=== PATIENT | male | born 1980 | race American Indian/Alaskan Native ===

== ENCOUNTER 2021-06-06 08:19 | Day surgery (SDC) | payer MEDICARE ==
[~2021-06-06 08:19] MED LIST: HEPARIN 10,000 UNITS/10 ML VIAL IV ONE; MIDAZOLAM 2 MG/2 ML INJ IV NR; SODIUM CHLORIDE 0.9% 1000 ML 1,000 ML IV SCH; SODIUM CHLORIDE 0.9% 250 ML IVPB IV ONE; SODIUM CHLORIDE 0.9% 500 ML IVPB IRRIGATION ONE; SODIUM CHLORIDE 0.9% IRR 1,500 ML BOTTLE IR ONE; ceFAZolin/Water 2 GM/20 ML 2 GM/20 ML SYRINGE IV NR; fentaNYL 100 MCG/2 ML INJ IV PRN; rifAMPin 600 MG VIAL IV ONE
--- NOTE | 2021-06-06 09:17 | Anesthesia Consultation ---
Anesthesia Consult and Med Hx Date of service: 06/06/21 - Airway Anesthetic Teeth Evaluation: Good ROM Head & Neck: Adequate Mental/Hyoid Distance: Adequate Mallampati Class: Class I Intubation Access Assessment: Good - Pre-Operative Health Status ASA Pre-Surgery Classification: ASA3 Proposed Anesthetic Plan: MAC Nerve Block: supraclavicular - Pulmonary Hx Smoking: Yes (quit 25yrs ago) Hx Respiratory Symptoms: No - Cardiovascular System Hx Hypertension: Yes Hx Heart Attack/AMI: No - Central Nervous System CVA: No - Endocrine Hx End Stage Renal Disease: Yes (last HD 06/05/21) Hx Liver Disease: No Hx Insulin Dependent Diabetes: No Hx Non-Insulin Dependent Diabetes: No Hx Thyroid Disease: No - Additional Comments Anesthesia Medical History Comments: No hx anesthetic complications.
--- NOTE | 2021-06-06 09:17 | Anesthesia Day of Surgery ---
Anesthesia Day of Surgery - Day of Surgery Patient Examined: Yes Patient H&P Reviewed: Yes Patient is NPO: Yes
[2021-06-06 09:58] LABS: Hematocrit 40.5 % (35.5-45.6); Hemoglobin 12.8 gm/dl (11.8-15.2); Mean Corpuscular HGB Conc 32 % (32-34); Mean Corpuscular Volume 100 fl (84-94); Platelet Count 145 K/mm3 (140-440); Red Blood Count 4.06 M/mm3 (3.65-5.03)
[2021-06-06 10:20] LABS: Calcium 5.9 mg/dL (8.4-10.2)
[2021-06-06] MEDS ORDERED: BUPIVACAINE/PF (0.25%) 2.5 MG/ML 30 ML VIAL INFILTRATI ONE (10:21)
[2021-06-06] MEDS ORDERED: BUPIVACAINE/PF (0.5%) 5 MG/1 ML 30 ML VIAL INFILTRATI ONE ×2 (10:54→12:14)
[2021-06-06] MEDS ORDERED: LIDOCAINE (1%) 10 MG/1 ML VIAL 20 ML MDV ONE (10:54)
[2021-06-06] MEDS ORDERED: HEPARIN 10,000 UNITS/10 ML VIAL ONE (10:54)
[2021-06-06] MEDS ORDERED: SODIUM CHLORIDE 0.9% 250ML 250 ML ONE (10:55)
[2021-06-06] MEDS ORDERED: rifAMPin 600 MG VIAL ONE (10:55)
[2021-06-06] MEDS ORDERED: SODIUM CHLORIDE 0.9% 500 ML 500 ML ONE (10:55)
[2021-06-06] MEDS ORDERED: LIDOCAINE MPF (2%) 20 MG/1 ML VIAL 5 ML ONE (10:58)
[2021-06-06] MEDS ORDERED: fentaNYL 100 MCG/2 ML INJ ONE (10:59)
[2021-06-06] MEDS ORDERED: propofoL 200 MG/20 ML VIAL IV ONE ×3 (10:59→12:52)
[2021-06-06] MEDS ORDERED: SODIUM CHLORIDE 0.9% 500 ML IVPB IRRIGATION ONE (12:02)
[2021-06-06] MEDS ORDERED: SODIUM CHLORIDE 0.9% 250 ML IVPB IV ONE (12:02)
[2021-06-06] MEDS ORDERED: rifAMPin 600 MG VIAL IV ONE (12:02)
[2021-06-06] MEDS ORDERED: SODIUM CHLORIDE 0.9% IRR 1,500 ML BOTTLE IR ONE (12:02)
[2021-06-06] MEDS ORDERED: HEPARIN 10,000 UNITS/10 ML VIAL IV ONE (12:02)
[2021-06-06] MEDS ORDERED: KETAMINE/STERILE WATER 50 MG/ML SYRINGE ONE (12:17)
--- NOTE | 2021-06-06 13:23 | Short Stay Summary ---
Short Stay Documentation Date of service: 06/06/21 Narrative H&P: See H&P - History H&P: obtained from office - Allergies and Medications Current Medications: Allergies morphine Allergy (Verified 06/05/21 08:53) Shortness of Breath ANXIETY, PARALYSIS diphenhydramine [From Benadryl] Adverse Reaction (Verified 06/05/21 08:53) Unknown RESTLESS LEG SYNDROME Home Medications Medication Instructions Recorded Confirmed Last Taken Type Bictegrav/Emtricit/Tenofov Ala 1 tab PO HS 06/05/21 06/05/21 Unknown History [Biktarvy 30-120-15 mg Tablet] Calcium Acetate [Phoslo] 667 mg PO TID 06/05/21 06/05/21 Unknown History Labetalol HCl [Labetalol 300mg TAB] 300 mg PO BID 06/05/21 06/05/21 Unknown History calcitrioL [Rocaltrol] 0.5 mcg PO BID 06/05/21 06/05/21 Unknown History Active Medications Fentanyl (Fentanyl 100 Mcg/2 Ml Inj) 100 mcg IV ONCE PRN PRN Reason: sedation for nerve block Cefazolin Sodium (Ancef/Sterile Water 2 Gm/20 Ml) 2 gm in 20 mls @ 80 mls/hr IV PREOP NR; Protocol Stop: 06/06/21 20:00 Sodium Chloride (Nacl 0.9% 1000 Ml) 1,000 mls @ 42 mls/hr IV DIRECT JOSE ENRIQUE Stop: 06/06/21 23:59 Midazolam HCl (Midazolam 2 Mg/2 Ml Inj) 2 mg IV PREOP NR Stop: 06/06/21 23:59 - Brief post op/procedure progress note Date of procedure: 06/06/21 Pre-op diagnosis: Complications of Dialysis Access Post-op diagnosis: same Procedure: Creation of Left Brachial Artery to Left Axillary Vein Arteriovenous Graft with 7 mm Bovine Artegraft Anesthesia: MAC, regional Surgeon: SHANNON MCRAE Estimated blood loss: minimal Pathology: none Condition: stable - Disposition Condition at discharge: Good Disposition: 01 HOME / SELF CARE / HOMELESS Short Stay Discharge Plan Activity: other (No heavy lifting with left arm for 2 weeks.) Wound: open to air, keep clean and dry, other (Okay to shower and wash the incision with soap and water but do not soak in water for 2 weeks.) Follow up with: SHANNON MCRAE MD [Staff Physician] - 14 Days Prescriptions: HYDROcodone/APAP 7.5-325 [[place] 7.5/325] 1 each PO Q6HR PRN #30 tablet PRN Reason: Pain
--- NOTE | 2021-06-06 13:30 | Operative Report ---
Operative Report Operative Report: Date of procedure:06/06/2021 Pre-operative diagnosis: Complications of Dialysis Access Post-operative diagnosis: Same Procedure(s): 1. Creation of Left Brachial Artery to Axillary Vein AV Graft with 7 mm Bovine Graft Artergraft Surgeon: Naseem Fish MD Aviation Support Equipment Repairer: None Anesthesia: Regional/MAC EBL: Minimal Counts: Correct Complications: None Condition: Stable Findings: Successful Creation of Left Arm AV Graft with Palpable Thrill and Palpable Radial Pulse at the Completion of the Case. Specimen: None Indication: The patient is a 41-year-old male with a history of end-stage renal disease who is currently on a left thigh arteriovenous fistula. He had a diagnostic fistulogram with a diagnostic arteriogram that revealed angiographic evidence of steal syndrome. Given the appearance of the fistula it did not appear amenable to revision and in addition to this he had not ever had an access in his left upper extremity. I discussed this with the patient and felt that it was best to create a graft in his left upper extremity as he does not have adequate vein for creation of a fistula. The patient agreed with the assessment and plan. He was given the risk, benefits, and alternative procedures and consented to the procedure. Description of Procedure: Prior to being transported to the operating room the patient had a regional block of the left arm performed. After the block was performed the patient was transported to the operating room and adequately sedated. The patient's left arm was then prepped and draped in normal sterile fashion. A longitudinal incision was made on the medial aspect of the arm just proximal to the antecubital crease and carried down to the brachial artery using sharp dissection. The brachial artery was dissected out circumferentially both proximally and distally and controlled with vessel loops. A second incision was created in longitudinal fashion on the medial aspect of the arm just distal to the axillary crease and carried down to the axillary vein using sharp dissection. Axillary vein was dissected out circumferentially and controlled with a vessel loop. I then used a Mariela-Wick tunneler to tunnel from the brachial artery incision to the axillary vein incision and then pulled an 7 mm bovine through the tunnel. I infused with heparinized saline to ensure that it was not twisted or kinked. I put the brachial artery vessel loops on tension controlling the flow and then created an arteriotomy using an 11 blade and Jerome scissors. I beveled the graft and created an end-to-side anastomosis using 6-0 Prolene running fashion. I clamped the graft just proximal to the anastomosis and then released the vessel loops restoring flow in the brachial artery. I placed quick clot in incision to achieve hemostasis. I cut the proximal end of the graft to the appropriate length and beveled the graft in preparation for a venous anastomosis. I controlled the axillary vein a Satinsky clamp and created a venotomy using an 11 blade and Jerome scissors. I created an end to side anastomosis using a 6-0 Prolene in running fashion. Prior to completing the anastomosis I flushed the graft to ensure there was no thrombus and then completed the anastamosis. I released all clamps allowing flow into the AV graft which had an excellent thrill. I packed the wound with quick clot to achieve hemostasis. I closed both wounds in 2 layers using 3-0 Vicryl in running fashion in the deep dermal layer and 4-0 Monocryl in running fashion the subcuticular layer. I dressed both wounds with Dermabond. The patient tolerated the procedure well all sponge, needle, and instrument counts were correct. The patient was taken to recovery in stable condition.
[2021-06-06] MEDS ORDERED: OXYMETAZOLINE 0.05% NASAL SPRAY NS ONE (14:23)
[2021-06-06] MEDS ORDERED: HYDROcodone/ACETAMINOPHEN 5-325 MG TAB PO ONE (15:01)
[2021-06-06] MEDS ORDERED: AYR SALINE NASAL GEL 14.1 GM NS PRN (15:24)
[2021-06-06] MEDS ORDERED: LIDOCAINE (4%) 40 MG/ML TOPICAL SOLN 50 ML BOTTLE TP ONE (16:20)
--- NOTE | 2021-06-06 17:49 | Cat Scan Report ---
CT MAXILLOFACIAL WITHOUT CONTRAST INDICATION / CLINICAL INFORMATION: right nasal pain. Status post nasal trumpet placement and removal. TECHNIQUE: All CT scans at this location are performed using CT dose reduction for ALARA by means of automated e xposure control. COMPARISON: None available. FINDINGS: FACIAL BONES: No fracture or other significant abnormality. ASSISTANT PRODUCE MANAGER SPACES:Evaluation of the industrial engineering technologist space structures reveal no abnormalities. SALIVARY GLANDS: Parotid and submandibular salivary glands have an unremarkable appearance. PARANASAL SINUSES: Mild mucosal thickening is seen within several ethmoid air cells. No other indicat ion of inflammatory changes seen within the paranasal sinuses. NASAL CAVITY: Soft tissue of material opacifies portion of the right nasal cavity between the inferio r and middle turbinates. Given the history of recent nasal trumpet placement this could represent a s mall hematoma. There is no indication of fracture. Mild rightward deviation of the nasal septum is no geoffrey. ORBITS: Globes, optic nerves and extraocular muscles have an unremarkable appearance. TEMPORAL BONES:Visualized mastoid air cells and the middle ear cavities are normally pneumatized. No abnormalities are seen on evaluation of the middle ear cavities. VISUALIZED INTRACRANIAL STRUCTURES: A region of CSF attenuation is seen along the medial aspect of th e right temporal lobe. This could represent an arachnoid cyst in the right choroidal fissure. An epid ermoid could produce a similar appearance. Magnetic resonance imaging of the brain would be useful to further characterize this finding. No other intracranial abnormalities are identified. ADDITIONAL FINDINGS: None. IMPRESSION: 1. Soft tissue attenuation in the right nasal cavity could represent hematoma. 2. No indication of facial fracture or other osseous abnormality. 3. CSF attenuation along the medial aspect of the right temporal lobe could reflect presence of an ar achnoid cyst in the choroidal fissure. An epidermoid could produce a similar appearance. Further eval uation with magnetic resonance imaging of the brain would be useful to further characterize this find ing. Signer Name: Christiano Saxena MD Signed: 06/06/2021 5:45 PM Workstation Name: [id number]
--- NOTE | 2021-06-06 18:01 | Event Note ---
Date: 06/06/21 While in PACU, patient complained of severe pain in the right nostril. Of note, patient was noted to have airway obstruction while under sedation so nasal trumpet was placed. Per MANPOWER DEVELOPMENT MANAGER, first attempted to place lubricated nasal trumpet in right nostril but this did not pass easily so it was placed in the left nostril without difficulty. It was removed at the end of the surgery without difficulty. Patient has no pain in the left nostril, or in the region of of the facial sinuses on either side. There is no obvious trauma to the nose. There is no bleeding or significant nasal drainage. Initially, there was complaint of congestion for which Afrin was given however pain was not relieved. Additional interventions at that time included saline nasal gel/spray, humidified O2, warm and cold compress. None of these provided relief. Cotton swabs soaked in 4% lidocaine inserted gently into right nostril and left for 10 mins with no relief. PO and IV pain medications were minimally effective. Performed limited exam with Glidescope fiberoptic scope and noted congestion on the right side, no significant erythema, no obvious nasal trauma to either nostril. Given concern for significant pain without clear cause on external exam, CT face ordered for further evaluation. Patient's family updated.
[2021-06-06] MEDS ORDERED: HYDROcodone/ACETAMINOPHEN 5-325 MG TAB PO PRN (19:32)
--- NOTE | 2021-06-06 19:42 | Post Anesthesia Evaluation ---
- Post Anesthesia Evaluation Patient Participated: Yes Airway Patent: Yes Stable Respiratory Function: Yes Nausea/Vomiting: No Temp > 96.8F: Yes Pain Manageable: Yes Adequeate Hydration: Yes Anesthesia Complications: Yes (see event note)
[2021-06-06 20:52] VITALS: BP 138/82
--- NOTE | 2021-06-07 17:55 | Event Note ---
Date: 06/07/21 Attempted to contact patient regarding complaint of nasal pain and follow up with [facility] that was scheduled for today at 1pm. Tried phone number listed for patient in EMR x3 as well as number listed for patient's spouse x1. No answer at either number. Voicemail was full for patient's number. Will attempt to follow up again tomorrow.
--- NOTE | 2021-06-08 17:59 | Event Note ---
Date: 06/08/21 Again attempted to contact patient at the phone number listed in EMR and at spouse's listed number regarding complaint of nasal pain on 06/06/10. Tried both numbers multiple times throughout the day. There was no answer at either number.
== END 2021-06-06 20:00 | disposition home or self-care (01) ==
LOC: OR 08:19
PROVIDERS: ATTEND Surgery Vascular Surgery
DX: T82.898A Other specified complication of vascular prosthetic devices, implants and grafts, initial encounter (principal); I12.0 Hypertensive chronic kidney disease with stage 5 chronic kidney disease or end stage renal disease; N18.6 End stage renal disease; Z86.718 Personal history of other venous thrombosis and embolism; Z94.0 Kidney transplant status; Z98.890 Other specified postprocedural states; Z79.899 Other long term (current) drug therapy; Z88.5 Allergy status to narcotic agent; Z88.8 Allergy status to other drugs, medicaments and biological substances; Z87.891 Personal history of nicotine dependence; Y82.8 Other medical devices associated with adverse incidents; Y92.89 Other specified places as the place of occurrence of the external cause
CPT/HCPCS: 36415; 36830; 64415; 70486; 80048; 85027; C1768; J0690; J1644; J2250; J2704; J3010; J3490; J7030; J7040; J7050; 64450; J7120; Q0162

== ENCOUNTER 2021-07-25 08:34 | Day surgery (SDC) | payer MEDICARE ==
[~2021-07-25 08:34] MED LIST changes: -HEPARIN 10,000 UNITS/10 ML VIAL IV ONE; -MIDAZOLAM 2 MG/2 ML INJ IV NR; -SODIUM CHLORIDE 0.9% 1000 ML 1,000 ML IV SCH; -SODIUM CHLORIDE 0.9% 250 ML IVPB IV ONE; -SODIUM CHLORIDE 0.9% 500 ML IVPB IRRIGATION ONE; -SODIUM CHLORIDE 0.9% IRR 1,500 ML BOTTLE IR ONE; +ceFAZolin/STERILE WATER 2 GM/20 ML SYRINGE IV NR; -ceFAZolin/Water 2 GM/20 ML 2 GM/20 ML SYRINGE IV NR; -fentaNYL 100 MCG/2 ML INJ IV PRN; -rifAMPin 600 MG VIAL IV ONE
[2021-07-25] MEDS ORDERED: SODIUM CHLORIDE 0.9% 1000 ML 1,000 ML ONE (08:52)
[2021-07-25] MEDS ORDERED: SODIUM CHLORIDE 0.9% 1000 ML 1,000 ML IV SCH (09:00)
[2021-07-25] MEDS ORDERED: oxyCODONE /ACETAMINOPHEN 5-325MG TAB PO PRN (09:30)
[2021-07-25] MEDS ORDERED: fentaNYL 100 MCG/2 ML INJ IV PRN (09:30)
[2021-07-25] MEDS ORDERED: LIDOCAINE (1%) 10 MG/1 ML VIAL 20 ML MDV ONE (09:32)
[2021-07-25] MEDS ORDERED: HEPARIN 10,000 UNITS/10 ML VIAL ONE (09:32)
[2021-07-25] MEDS ORDERED: BUPIVACAINE/PF (0.5%) 5 MG/1 ML 30 ML VIAL INFILTRATI ONE ×2 (09:32→11:18)
[2021-07-25] MEDS ORDERED: SODIUM CHLORIDE 0.9% 500 ML 500 ML ONE (09:33)
[2021-07-25] MEDS ORDERED: SODIUM CHLORIDE 0.9% 250ML 0 ML ONE (09:33)
[2021-07-25] MEDS ORDERED: SODIUM CHLORIDE 0.9% 250ML 250 ML ONE (09:33)
[2021-07-25] MEDS ORDERED: rifAMPin 600 MG VIAL ONE (09:33)
[2021-07-25 09:52] LABS: Hematocrit 41.5 % (35.5-45.6); Hemoglobin 13.8 gm/dl (11.8-15.2); Mean Corpuscular HGB Conc 33 % (32-34); Mean Corpuscular Volume 98 fl (84-94); Red Blood Count 4.26 M/mm3 (3.65-5.03); Red Cell Distribution Width 15.7 % (13.2-15.2)
--- NOTE | 2021-07-25 09:53 | Anesthesia Day of Surgery ---
Anesthesia Day of Surgery - Day of Surgery Patient Examined: Yes Patient H&P Reviewed: Yes Patient is NPO: Yes
--- NOTE | 2021-07-25 09:53 | Anesthesia Consultation ---
Anesthesia Consult and Med Hx Date of service: 07/25/21 - Airway Anesthetic Teeth Evaluation: Good ROM Head & Neck: Adequate Mental/Hyoid Distance: Adequate Mallampati Class: Class I Intubation Access Assessment: Good - Pre-Operative Health Status ASA Pre-Surgery Classification: ASA3 Proposed Anesthetic Plan: General - Pulmonary Hx Smoking: Yes (quit 25yrs ago) Hx Respiratory Symptoms: No - Cardiovascular System Hx Hypertension: Yes Hx Heart Attack/AMI: No - Central Nervous System CVA: No - Endocrine Hx End Stage Renal Disease: Yes (last HD 07/24/21) Hx Liver Disease: No Hx Insulin Dependent Diabetes: No Hx Non-Insulin Dependent Diabetes: No Hx Thyroid Disease: No - Additional Comments Anesthesia Medical History Comments: Had cut in left nare after nasal trumpet placement during previous anesthetic. Otherwise, no anesthetic complications.
[2021-07-25 09:55] LABS: Platelet Count 80 K/mm3 (140-440)
[2021-07-25] MEDS ORDERED: MIDAZOLAM 2 MG/2 ML INJ IV NR (10:00)
--- NOTE | 2021-07-25 10:30 | Short Stay Summary ---
Short Stay Documentation Date of service: 07/25/21 Narrative H&P: The patient is a 41-year-old male with a history of end-stage renal disease. He is currently on hemodialysis through a left arm arteriovenous graft that was created approximately 1 month ago. He has a left thigh fistula that is causing steal syndrome resulting in pain and numbness of his left leg. He is in need of ligation of the left thigh fistula to resolve his symptoms. He was given the risk, benefits, and alternative procedures and consented to the procedure. - History Past Medical History: dialysis, ESRD, HIV/AIDS, hypertension Past Surgical History: Other (creation of right arm arteriovenous access, creation of left thigh AVF, creation of left arm AVG) Social history: no significant social history - Allergies and Medications Current Medications: Allergies morphine Allergy (Verified 07/17/21 11:27) Shortness of Breath ANXIETY, PARALYSIS diphenhydramine [From Benadryl] Adverse Reaction (Verified 07/17/21 11:) Unknown RESTLESS LEG SYNDROME Home Medications Medication Instructions Recorded Confirmed Last Taken Type Bictegrav/Emtricit/Tenofov Ala 1 tab PO HS 06/05/21 07/25/21 07/24/21 21:00 History [Biktarvy 30-120-15 mg Tablet] Calcium Acetate [Phoslo] 667 mg PO TIDWM 06/05/21 07/25/21 07/24/21 17:00 History Labetalol HCl [Labetalol 300mg TAB] 300 mg PO BID 06/05/21 07/25/21 07/24/21 20:00 History calcitrioL [Rocaltrol] 0.5 mcg PO BID 06/05/21 07/25/21 07/24/21 17:00 History Gabapentin [Neurontin] 100 mg PO QHS 07/17/21 07/25/21 07/24/21 20:00 History Active Medications Cefazolin Sodium (Cefazolin/Sterile Water 2 Gm/20 Ml Syringe) 2 gm IV PREOP NR Stop: 07/25/21 20:00 Fentanyl (Fentanyl 100 Mcg/2 Ml Inj) 50 mcg IV Q5MIN PRN PRN Reason: Pain , Severe (7-10) Stop: 07/25/21 18:00 Sodium Chloride (Nacl 0.9% 1000 Ml) 1,000 mls @ 42 mls/hr IV DIRECT JOSE ENRIQUE Stop: 07/25/21 21:00 Last Admin: 07/25/21 09:30 Dose: 42 mls/hr Midazolam HCl (Midazolam 2 Mg/2 Ml Inj) 2 mg IV PREOP NR Stop: 07/25/21 23:59 Oxycodone/Acetaminophen (Oxycodone /Acetaminophen 5-325mg Tab) 1 tab PO ONCE PRN PRN Reason: Pain, Moderate (4-6) Stop: 07/25/21 18:00 - Physical exam General appearance: no acute distress Lungs: Normal air movement Breasts: deferred Heart: Regular rate Gastrointestinal: normal Male Genitourinary: deferred Extremities: abnormal (left thigh graft with palpable thrill, left arm AVG with palpablr thrill, venous cannulation with evidence of infiltration) - Brief post op/procedure progress note Date of procedure: 07/25/21 Pre-op diagnosis: Complications of Dialysis Access Post-op diagnosis: same Procedure: Ligation of Left SFA to Femoral Vein Arteriovenous Fistula Anesthesia: CHENA Surgeon: SHANNON MCRAE Estimated blood loss: minimal Pathology: none Condition: stable - Disposition Condition at discharge: Good Disposition: 01 HOME / SELF CARE / HOMELESS Short Stay Discharge Plan Activity: other (No strenuous activity for 2 weeks.) Wound: open to air, keep clean and dry, other (Okay to shower and wash the left thigh incision with soap and water but do not soak in water for 2 weeks.) Follow up with: SHANNON MCRAE MD [Staff Physician] - 14 Days Prescriptions: HYDROcodone/APAP 7.5-325 [[place] 7.5/325] 1 each PO Q6HR PRN #40 tablet PRN Reason: Pain oxyCODONE /ACETAMINOPHEN [Percocet 5/325 mg] 1 tab PO ONCE PRN #40 tablet PRN Reason: Pain, Moderate (4-6)
[2021-07-25] MEDS ORDERED: ONDANSETRON 4 MG/2 ML INJ ONE (10:32)
[2021-07-25] MEDS ORDERED: LIDOCAINE MPF (2%) 20 MG/1 ML VIAL 5 ML ONE (10:32)
[2021-07-25] MEDS ORDERED: propofoL 200 MG/20 ML VIAL IV ONE (10:33)
[2021-07-25] MEDS ORDERED: fentaNYL 100 MCG/2 ML INJ ONE (10:33)
[2021-07-25] MEDS ORDERED: SODIUM CHLORIDE 0.9% IRR 1,500 ML BOTTLE IR ONE (11:18)
[2021-07-25] MEDS ORDERED: HEPARIN 10,000 UNITS/10 ML VIAL IV ONE (11:18)
[2021-07-25] MEDS ORDERED: SODIUM CHLORIDE 0.9% 500 ML IVPB IRRIGATION ONE (11:18)
[2021-07-25] MEDS ORDERED: dexAMETHasone 20 MG/5 ML VIAL ONE (12:01)
[2021-07-25] MEDS ORDERED: PHENYLEPHRINE/NS 1,000 MCG/10 ML SYRINGE (OR USE) IV ONE (12:02)
--- NOTE | 2021-07-25 12:20 | Operative Report ---
Operative Report Operative Report: Date of Procedure: 07/25/2021 Pre-operative Diagnosis: Complications of Dialysis Access Post-operative Diagnosis: Same Procedure(s): 1. Ligation of Left SFA to Left Femoral Vein Arteriovenous Fistula Surgeon: Naseem Fish M.D. Vice President Supply Chain: Lex Anesthesia: General Endotracheal Anesthesia EBL: Minimal Counts: Correct Complications: None Condition: Stable Findings: Fistula was ligated and the patient had a palpable distal pulse at the completion of the case. Specimen: None Indication: The patient is a 41-year-old male with a history of end-stage renal disease who had a previous creation of a left SFA to left femoral vein arteriovenous fistula created by an outside physician. He presented with complaints of left leg pain and numbness and was found to have steal syndrome on a diagnostic angiogram. He had a creation of a left arm arteriovenous graft with a plan to ligate his left thigh fistula to resolve his symptoms. His graft has been used without difficulty so is now in need of ligation of the left thigh fistula. He was given the risk, benefits, and alternative procedures and consented to the procedure. Description of Procedure: The patient was brought to the operating room and laid in supine position. After timeout was performed general endotracheal anesthesia was achieved. The patient's left leg was then prepped and draped in normal sterile fashion. A longitudinal incision was created on the medial aspect of the thigh centered over the arterial anastomosis, through his previous incision, and carried down to the fistula using sharp dissection. The dissection was carried down to the arterial anastomosis and then the SFA was dissected circumferentially both pro ximal distal to the anastomosis. The proximal and distal SFA were then controlled with Vesseloops. I dissected circumferentially around the fistula and ligated the venous outflow with a 0 silk tie (x2). I then placed the Vesseloops on tension to control flow through the SFA and transected the fistula near the arterial anastomosis leaving a cuff for closure of the arteriotomy. I closed the arteriotomy with a 4-0 Prolene in running fashion. Prior to completing the closure of the arteriotomy I flashed the inflow and outflow the vein and then flushed the arteriotomy with heparinized saline to clear any potential thrombus. I completed the closure and then released the Vesseloops allowing flow through the artery which had a palpable pulse distal to the closure. The wound was then copiously irrigated and hemostasis was achieved with a combination of Surgiseal and manual pressure. Once hemostasis was achieved the wound was anesthetized with 0.5% Marcaine and closed in 3 layers using a 3-0 Vicryl running fashion to reapproximate the fascia, a 3-0 Vicryl running fashion the deep dermal layer, and a 4-0 Monocryl in a running fashion the subcuticular. The wound was then dressed with Dermabond. The patient tolerated the procedure well. All sponge, needle, and instrument counts were correct. The patient was taken to the recovery area in stable condition.
--- NOTE | 2021-07-25 13:31 | Post Anesthesia Evaluation ---
- Post Anesthesia Evaluation Patient Participated: Yes Airway Patent: Yes Stable Respiratory Function: Yes Nausea/Vomiting: No Temp > 96.8F: Yes Pain Manageable: Yes Adequeate Hydration: Yes Anesthesia Complications: No
[2021-07-25 13:53] VITALS: BP 125/89
== END 2021-07-25 13:25 | disposition home or self-care (01) ==
LOC: OR 08:34
PROVIDERS: ATTEND Surgery Vascular Surgery
DX: T82.898A Other specified complication of vascular prosthetic devices, implants and grafts, initial encounter (principal); I12.0 Hypertensive chronic kidney disease with stage 5 chronic kidney disease or end stage renal disease; N18.6 End stage renal disease; F41.9 Anxiety disorder, unspecified; Z98.890 Other specified postprocedural states; Z87.891 Personal history of nicotine dependence; Z88.8 Allergy status to other drugs, medicaments and biological substances; Z79.899 Other long term (current) drug therapy; Z86.711 Personal history of pulmonary embolism; Z94.0 Kidney transplant status; Y82.8 Other medical devices associated with adverse incidents; Y92.89 Other specified places as the place of occurrence of the external cause
CPT/HCPCS: 37607; 80048; 85027; 86850; 86900; 86901; J0690; J1100; J1644; J2370; J2405; J2704; J3010; J3490; J7030; J7040; J7050